=== PATIENT | female | born 1970 | race Caucasian/White ===

== ENCOUNTER 2016-11-14 06:56 | Observation (INO) | payer OTHER ==
[2016-11-11 11:14] LABS: HEMATOCRIT 44.7 % (36.0-48.0); HEMOGLOBIN 15.5 g/dL (12.0-16.0)
--- NOTE | ~2016-11-14 | PREOPHP ---
PreOp History and Physical [address] [place]. [address] NAME: CHEYENNE PRUETT : 74 STATUS : REG [facility]#: [id number] AGE: 46 ADM/REG DATE : 11/14/16 MR#: [id number] REPORT SERV DATE: 11/14/16 DICTATED BY: ROBERT KAPOOR DATE: 11/14/16 REPORT STATUS : Draft TRANSCRIBED BY: ALEJANDRO DATE: 11/14/16 CHIEF COMPLAINT: Neck pain. HISTORY OF PRESENT ILLNESS: The patient is a 46-year-old with intractable neck pain as well as left upper extremity weakness. The patient has failed previous conservative treatment including various medications, and after discussion of risks and benefits and neurologic decline, the patient elected to proceed with surgical intervention. REVIEW OF SYSTEMS: She denies chest pain, shortness of breath, and bowel or bladder changes. ALLERGIES: CODEINE AND SULFA. HOME MEDICATIONS: Include clonazepam, gabapentin, Percocet, Remeron, Zoloft. FAMILY HISTORY: Noncontributory. PAST MEDICAL HISTORY: Anxiety and depression. PHYSICAL EXAMINATION: VITAL SIGNS: Height 5 feet 5 inches, weight 200, BMI 33.3. GENERAL: Patient is healthy appearing. No acute distress. PSYCH: Alert and oriented x3. Normal mood and affect. Gait is somewhat unsteady. VASCULAR: No extremity swelling. SPINE: Decreased cervical motion. HEART: Regular rate and rhythm. LUNGS: Clear to auscultation. ABDOMEN: Soft, nontender, nondistended with good bowel sounds. BREASTS AND RECTAL: Both deferred. NEUROLOGIC: Strength in the left upper extremity is 4/5 for the triceps, 4/5 also for the right triceps and intrinsics. The patient also has progressive worsening problems with dropping objects and some balance problems. IMAGING: I have reviewed the MRI scan, it does show C5-C7 disk disease with stenosis and nerve root and spinal cord compression. ASSESSMENT: Cervical disk disease and stenosis, cervical radiculopathy, failed conservative treatment. PLAN: The patient presents today for surgical intervention. Consent was obtained. All questions answered. The patient is ready to proceed with surgical intervention. JCE/MODL PreOp History and Physical [address] [address] NAME: CHEYENNE PRUETT : 74 STATUS : REG [facility] PAT#: [id number] AGE: 46 ADM/REG DATE : 11/14/16 MR#: [id number] REPORT SERV DATE: 11/14/16 DICTATED BY: ROBERT KAPOOR DATE: 11/14/16 REPORT STATUS : Draft TRANSCRIBED BY: ALEJANDRO DATE: 11/14/16 Robert Kapoor DO / [id number] CC: DO Sapna Wilkinson M.D.
--- NOTE | ~2016-11-14 | OP ---
Record Of Operation [facility] [address] [place]. [address] NAME: CHEYENNE PRUETT : 74 STATUS : ADM Jose PAT#: [id number] AGE: 46 ADM/REG DATE : 11/14/16 MR#: [id number] REPORT SERV DATE: 11/14/16 DICTATED BY: ROBERT KAPOOR DATE: 11/14/16 REPORT STATUS : Draft TRANSCRIBED BY: ALEJANDRO DATE: 11/14/16 DATE OF PROCEDURE: 11/14/2016 PREOPERATIVE DIAGNOSIS: C5-6, C6-7 disk disease and stenosis, cervical radiculopathy. POSTOPERATIVE DIAGNOSIS: C5-6, C6-7 disk disease and stenosis, cervical radiculopathy. PROCEDURE: Anterior cervical diskectomy and fusion, C5-6, C6-7; placement of Medtronic PEEK interbody spacer, C5-6, C6-7; anterior cervical plate from [employer]tronic, C5-C7; allograft bone matrix neuromonitoring, and operative microscope. ANESTHESIA: General. ESTIMATED BLOOD LOSS: 10 mL. COMPLICATIONS: None. INDICATIONS: The patient is a 46-year-old with intractable neck and upper extremity pain, weakness, failed conservative treatment. After discussion of risks and benefits and neurologic decline, the patient elected to proceed with surgical intervention. PROCEDURE IN DETAIL: I identified the patient in the holding area. Consent was obtained. Went to the operating room. Underwent general anesthesia with endotracheal intubation. Prepped and draped in the usual sterile fashion. Operative safety pause was performed, then we proceeded with surgery. An oblique incision was made over the left side of the neck, taken through the platysma. Dissection was carried out down to the anterior aspect of the spine. Longus colli elevated. Self-retaining retractors placed. Framingham pin was placed and lateral fluoroscopic image was used to verify operative level. Distraction pins were placed at C5 and C6. Distraction applied. Operative microscope brought in. A knife was used to perform an annulotomy. Free disk material removed with pituitary. Anterior osteophytes were removed with Kerrison. Posterior osteophytes and uncinate processes taken down with a kassandra bur. Foraminotomies performed with a Kerrison. Endplates were prepared with curettes, rasp, and a cutting bur. Trial spacers implanted. The Medtronic PEEK interbody spacer with allograft bone matrix placed at C5-C6, this was repeated at C6-C7. Framingham pins were removed. Anterior cervical plate from [employer]tronic placed at C5-C7. Screws were placed, final tightened. Locking mechanism was engaged. AP and lateral fluoroscopic images was used to verify placement of instrumentation. Irrigation performed. Hemostasis achieved. Subplatysmal drain placed. Layered closure performed. Sterile dressings applied. The patient was awoken and extubated, taken to recovery room in stable condition. OPERATIVE FINDINGS: C5-7 disk disease and stenosis. No sustained neuromonitoring alerts. JACKELINE/ALEJANDRO Record Of Operation [address] [place]. [address] NAME: CHEYENNE PRUETT : 74 STATUS : ADM Jose PAT#: [id number] AGE: 46 ADM/REG DATE : 11/14/16 MR#: [id number] REPORT SERV DATE: 11/14/16 DICTATED BY: ROBERT KAPOOR DATE: 11/14/16 REPORT STATUS : Draft TRANSCRIBED BY: ALEJANDRO DATE: 11/14/16 Robert Kapoor DO / [id number] CC: Robert Kapoor DO
[~2016-11-14 06:56] MED LIST: KLONO5 PO; NEUR300 PO; PERCOCET 7.5/321 TAB PO; PR25 PO; REM15 PO; ZOL100 PO
[2016-11-15 04:55] LABS: BUN (BLOOD UREA NITROGEN) 8 MG/DL (6-23); CHLORIDE, SERUM 109 MMOL/L (96-112); CO2 (CARBON DIOXIDE) 29 MMOL/L (24-34); CREATININE 1.07 MG/DL (0.55-1.02); GFR AFRICAN AMERICAN 73 ML/MIN (>=60); GFR NON AFRICAN AMERICAN 63 ML/MIN (>=60); POTASSIUM, SERUM 4.4 MMOL/L (3.5-5.3); SODIUM, SERUM 144 MMOL/L (135-148)
[2016-11-15 04:56] LABS: CALCIUM, SERUM 8.4 MG/DL (8.5-10.4); GLUCOSE, SERUM 127 MG/DL (60-99)
[2016-11-15] MEDS ORDERED: PCET PO (12:11)
[2016-11-15] MEDS ORDERED: METHOC500B PO (12:11)
== END 2016-11-15 14:15 | disposition home or self-care (01) ==
LOC: SDC 06:56 → SDC/OF 11:40 → 3SO 13:59
PROVIDERS: Orthopaedic Surgery
PROC: 0RT30ZZ Resection of Cervical Vertebral Disc, Open Approach (ICD-10-PCS; principal; 2016-11-14 09:15)
DX: M54.12 Radiculopathy, cervical region (principal); M50.323 Other cervical disc degeneration at C6-C7 level; M48.02 Spinal stenosis, cervical region; M50.322 Other cervical disc degeneration at C5-C6 level; F41.9 Anxiety disorder, unspecified; F32.9 Major depressive disorder, single episode, unspecified; Z90.710 Acquired absence of both cervix and uterus; K64.9 Unspecified hemorrhoids; F17.210 Nicotine dependence, cigarettes, uncomplicated; Z88.2 Allergy status to sulfonamides; Z88.5 Allergy status to narcotic agent
CPT/HCPCS: 80048; 82962; 85014; 85018; 87641; 88304; 88311; 94640; 96374; 96376; 97161-GP; A9270-GY; C1713; G0378; J0690; J2250; J2270; J2405; J2710; J3010